=== PATIENT | male | born 1965 | race Two or more races ===

== ENCOUNTER 2023-07-14 20:46 | Emergency (ER) | payer MEDICAID ==
[~2023-07-14] VITALS: Ht 165.1 cm; Wt 72.7 kg
[2023-07-14] MEDS ORDERED: IBUPROFEN 600 MG TABLET PO ONE (21:00)
[2023-07-14 21:36] VITALS: BP 142/74; PULSE 98; RESP 15; TEMP 98.3
== END 2023-07-14 22:10 | disposition home or self-care (01) ==
LOC: EMS 20:47
DX: S42.001A Fracture of unspecified part of right clavicle, initial encounter for closed fracture (principal); F10.90 Alcohol use, unspecified, uncomplicated; Y90.9 Presence of alcohol in blood, level not specified; Y08.89XA Assault by other specified means, initial encounter; Y93.89 Activity, other specified; Y92.89 Other specified places as the place of occurrence of the external cause; Y99.8 Other external cause status
CPT/HCPCS: 71045; 99283

== ENCOUNTER 2024-06-12 02:07 | Emergency (ER) | payer OTHER ==
[~2024-06-12] VITALS: Ht 175.3 cm; Wt 75.0 kg
[~2024-06-12 02:07] MED LIST: FURO40TA6 PO; LACT10SO10 PO; PANT-31 PO; PRED-549 PO; PROP10TA72 PO; SITA50 PO; SPIR50TA PO
[2024-06-12 02:24] VITALS: TEMP 98.8
[2024-06-12 03:15] LABS: HEMATOCRIT 33.9 % (41-53); HEMOGLOBIN 10.8 g/dL (13.5-17.5); MEAN CORPUSCULAR HEMOGLOBIN 25.3 pg (26.0-34.0); MEAN CORPUSCULAR VOLUME 79 fL (80-100); PLATELET COUNT (AUTO) 50 K/uL (150-450); RED BLOOD CELL COUNT(AUTO) 4.29 MIL/uL (4.50-5.90); RED CELL DISTRIBUTION WIDTH 20.4 % (11.5-14.5)
[2024-06-12 03:23] LABS: BAND NEUTROPHILS % (MANUAL) 0 % (0-5)
[2024-06-12 03:28] LABS: INR 1.2 (0.9-1.1); PROTHROMBIN TIME 12.8 SEC (9.4-11.6)
[2024-06-12 03:29] LABS: ANION GAP 12 mmol/L (8-16); CALCIUM, TOTAL 8.4 mg/dL (8.8-10.5); CARBON DIOXIDE 26 mmol/L (22-29); CHLORIDE 103 mmol/L (98-107); CREATININE 1.11 mg/dL (0.60-1.30); GLOMERULAR FILTR. RATE CALC > 60 mL/min (>60); GLUCOSE,RANDOM 254 mg/dL (70-110); POTASSIUM 3.3 mmol/L (3.5-5.1); SODIUM SERUM 141 mmol/L (136-145); UREA NITROGEN, BLOOD 7 mg/dL (7-18)
[2024-06-12 03:34] LABS: TROPONIN I-HIGH SENSITIVITY 11 ng/L (<76)
[2024-06-12 03:35] LABS: ALANINE AMINOTRANSFERASE 23 U/L (12-78); ALBUMIN 2.7 g/dL (3.4-5.0); ALKALINE PHOSPHATASE 129 U/L (46-116); ASPARTATE AMINOTRANSFERASE 40 U/L (15-37); BILIRUBIN,TOTAL 0.8 mg/dL (0.1-1.0); LIPASE 44 U/L (16-77); TOTAL PROTEIN, SERUM 7.6 g/dL (6.4-8.2)
[2024-06-12 03:41] LABS: EOSINOPHILS % (MANUAL) 27 % (1-6); LYMPHOCYTES % (MANUAL) 32 % (22-44); MONOCYTES % (MANUAL) 2 % (2-9); SEGMENTED NEUTROPHILS % 39 % (40-70); TOTAL CELLS COUNTED 100
[2024-06-12 03:42] LABS: WHITE BLOOD COUNT (AUTO) 3.3 K/uL (4.5-11.0)
[2024-06-12 03:47] LABS: ALCOHOL, BLOOD (SERUM) 355 mg/dL (0-10)
[2024-06-12] MEDS: MAGNESIUM SULFATE 2 GM, MVI, ADULT NO.1 WITH VIT K 10 ML, THIAMINE 100 MG, FOLIC ACID 1... IV ONE (04:35)
[2024-06-12] MEDS: FAMOTIDINE 20 MG/2 ML VIAL IVP ONE (04:35)
[2024-06-12 07:40] LABS: APPEARANCE,URINE CLEAR (CLEAR); BILIRUBIN,URINE NEGATIVE (NEGATIVE); COLOR,URINE LIGHT YELLOW (YELLOW); GLUCOSE, URINE (UA) >=1000 mg/dL (NEGATIVE); KETONES,URINE NEGATIVE (NEGATIVE); LEUKOCYTE ESTERASE ,URINE NEGATIVE (NEGATIVE); NITRATE,URINE NEGATIVE (NEGATIVE); OCCULT BLOOD,URINE NEGATIVE (NEGATIVE); PH,URINE 6.5 (5.0-8.0); PROTEIN,URINE TRACE mg/dL (NEGATIVE); SPECIFIC GRAVITIY, URINE 1.022 (1.003-1.030); UROBILINOGEN,URINE <=1.0 mg/dL (<=1.0)
[2024-06-12 07:42] LABS: BACTERIA,URINE None Seen /HPF (None Seen); RBC,URINE None Seen /HPF (0-2); WBC,URINE None Seen /HPF (0-5)
[2024-06-12 12:30] VITALS: BP 129/83; PULSE 96; RESP 18; O2SAT 96
== END 2024-06-12 15:40 | disposition home or self-care (01) ==
LOC: EMS 02:08
DX: D68.9 Coagulation defect, unspecified (principal); F10.229 Alcohol dependence with intoxication, unspecified; F41.9 Anxiety disorder, unspecified; E11.9 Type 2 diabetes mellitus without complications; I10 Essential (primary) hypertension; K40.90 Unilateral inguinal hernia, without obstruction or gangrene, not specified as recurrent; Y90.8 Blood alcohol level of 240 mg/100 ml or more
CPT/HCPCS: 99285; 74176; 96365; 96375; 80048; 80076; 82140; 83690; 83735; 84484; 85025; 85610; 85730; 36415; 74022; 93005; 81001; G0480; J3490 ×3; J3411; J3475; J7030

== ENCOUNTER 2024-12-03 00:54 | Emergency (ER) | payer OTHER ==
[~2024-12-03] VITALS: Ht 172.7 cm; Wt 88.0 kg
[~2024-12-03 00:54] MED LIST changes: +ACET-2247 PO; +AMLO10TA55 PO; +AMOX-457 PO; +CARV6.2534 PO; +FOLI-130 PO; -FURO40TA6 PO; -LACT10SO10 PO; +LEVE250T81 PO; +METF-446 PO; +MULT-1203 PO; -PRED-549 PO; -PROP10TA72 PO; +SITA100 PO; -SITA50 PO; -SPIR50TA PO; +THIA100T80 PO
[2024-12-03 01:02] VITALS: TEMP 98
[2024-12-03 01:35] LABS: BASOPHILS % (AUTO) 0.4 % (0.0-2.0); EOSINOPHILS % (AUTO) 10.7 % (1.0-6.0); HEMATOCRIT 33.7 % (41-53); LYMPHOCYTES # (AUTO) 0.7 K/uL (1.0-4.8); LYMPHOCYTES % (AUTO) 18.8 % (22.0-44.0); MEAN CORPUSCULAR HGB CONC 32.5 G/dL (31.0-37.0); MEAN CORPUSCULAR VOLUME 80 fL (80-100); MONOCYTES # (AUTO) 0.3 K/uL (0.1-1.0); MONOCYTES % (AUTO) 7.2 % (2.0-9.0); NEUTROPHILS # (AUTO) 2.4 K/uL (1.8-7.7); NEUTROPHILS % (AUTO) 62.9 % (40.0-70.0); RED BLOOD CELL COUNT(AUTO) 4.21 MIL/uL (4.50-5.90); RED CELL DISTRIBUTION WIDTH 19.1 % (11.5-14.5); WHITE BLOOD COUNT (AUTO) 3.8 K/uL (4.5-11.0)
[2024-12-03 01:45] LABS: PLATELET COUNT (AUTO) 45 K/uL (150-450)
[2024-12-03 01:53] LABS: ANION GAP 10 mmol/L (8-16); CALCIUM, TOTAL 8.2 mg/dL (8.8-10.5); CARBON DIOXIDE 26 mmol/L (22-29); CHLORIDE 103 mmol/L (98-107); CREATININE 0.56 mg/dL (0.60-1.30); GLOMERULAR FILTR. RATE CALC > 60 mL/min (>60); GLUCOSE,RANDOM 255 mg/dL (70-110); LIPASE 32 U/L (16-77); SODIUM SERUM 139 mmol/L (136-145); TROPONIN I-HIGH SENSITIVITY 12 ng/L (<76); UREA NITROGEN, BLOOD 2 mg/dL (7-18)
[2024-12-03 01:56] LABS: ALCOHOL, BLOOD (SERUM) 348 mg/dL (0-10)
[2024-12-03 02:01] LABS: POTASSIUM 2.9 mmol/L (3.5-5.1)
[2024-12-03] MEDS: POTASSIUM CHLORIDE 20 MEQ ER TABLET PO ONE (02:24)
[2024-12-03 04:32] VITALS: BP 148/80; PULSE 98; RESP 17; O2SAT 98
== END 2024-12-03 05:20 | disposition home or self-care (01) ==
LOC: EMS 00:56
DX: S00.83XA Contusion of other part of head, initial encounter (principal); F10.129 Alcohol abuse with intoxication, unspecified; K70.30 Alcoholic cirrhosis of liver without ascites; E11.65 Type 2 diabetes mellitus with hyperglycemia; I10 Essential (primary) hypertension; E87.6 Hypokalemia; Z59.00 Homelessness unspecified; Z79.84 Long term (current) use of oral hypoglycemic drugs; Z85.028 Personal history of other malignant neoplasm of stomach; Z87.19 Personal history of other diseases of the digestive system; Z79.899 Other long term (current) drug therapy; W50.0XXA Accidental hit or strike by another person, initial encounter; Y93.89 Activity, other specified; Y92.89 Other specified places as the place of occurrence of the external cause; Y99.8 Other external cause status; Y90.9 Presence of alcohol in blood, level not specified
CPT/HCPCS: 99284; 80048; 83690; 84484; 85025; 36415; 93005; G0480

== ENCOUNTER 2025-02-07 03:36 | Inpatient (IN) | payer OTHER ==
[2025-02-07] VITALS (8 sets, daily range): BP systolic 98–126; BP diastolic 59–85; PULSE 88–101; RESP 17–19; TEMP 98–98.8; O2SAT 95–98
[~2025-02-07] VITALS: Ht 165.1 cm; Wt 85.0 kg
[~2025-02-07 03:36] MED LIST changes: -ACET-2247 PO; +ACET-66 PO; -AMOX-457 PO; +CHLO25CA6 PO; +CHOL200059 PO; +HYDR-4808 PO
[2025-02-07] MEDS: TraMADol HCL 50 MG TABLET PO ONE (04:44)
[2025-02-07] MEDS: SODIUM CHLORIDE 0.9% 1,000 ML IV ONE (04:45)
[2025-02-07 04:50] LABS: ANION GAP 11 mmol/L (8-16); CARBON DIOXIDE 21 mmol/L (22-29); CHLORIDE 106 mmol/L (98-107); CREATININE 0.74 mg/dL (0.60-1.30); GLOMERULAR FILTR. RATE CALC > 60 mL/min (>60); GLUCOSE,RANDOM 269 mg/dL (70-110); POTASSIUM 3.4 mmol/L (3.5-5.1); SODIUM SERUM 138 mmol/L (136-145); UREA NITROGEN, BLOOD 7 mg/dL (7-18)
[2025-02-07 05:02] LABS: HEMATOCRIT 37.5 % (41-53); HEMOGLOBIN 12.1 g/dL (13.5-17.5); MEAN CORPUSCULAR HEMOGLOBIN 26.1 pg (26.0-34.0); MEAN CORPUSCULAR HGB CONC 32.3 G/dL (31.0-37.0); MEAN CORPUSCULAR VOLUME 81 fL (80-100); PLATELET COUNT (AUTO) 48 K/uL (150-450); RED BLOOD CELL COUNT(AUTO) 4.63 MIL/uL (4.50-5.90); RED CELL DISTRIBUTION WIDTH 20.6 % (11.5-14.5); WHITE BLOOD COUNT (AUTO) 2.6 K/uL (4.5-11.0)
[2025-02-07 05:22] LABS: BAND NEUTROPHILS % (MANUAL) 0 % (0-5)
[2025-02-07 05:23] LABS: EOSINOPHILS % (MANUAL) 15 % (1-6); LYMPHOCYTES % (MANUAL) 31 % (22-44); MONOCYTES % (MANUAL) 8 % (2-9); SEGMENTED NEUTROPHILS % 46 % (40-70); TOTAL CELLS COUNTED 100
[2025-02-07] MEDS: ChlordiazePOXIDE HCL 25 MG CAPSULE PO ONE (06:18)
[2025-02-07] MEDS ORDERED: HydrOXYzine PAMOATE 25 MG CAPSULE PO PRN (18:00)
[2025-02-07] MEDS ORDERED: LORazepam 2 MG/ML VIAL IVP PRN (18:15)
[2025-02-07] MEDS: MetFORMIN HCL 500 MG TABLET PO SCH (18:26)
[2025-02-07] MEDS ORDERED: ChlordiazePOXIDE HCL 10 MG CAPSULE PO PRN (18:30)
[2025-02-07] MEDS: LevETIRAcetam 250 MG TABLET PO SCH (20:44)
[2025-02-07] MEDS: ChlordiazePOXIDE HCL 10 MG CAPSULE PO SCH (20:44)
[2025-02-07] MEDS ORDERED: carvediloL 6.25 MG TABLET PO SCH (21:00)
[2025-02-08 00:51] VITALS: BP 128/82; PULSE 89; RESP 19; TEMP 98.2; O2SAT 98
[2025-02-08 04:59] VITALS: BP 150/84; PULSE 80; RESP 18; TEMP 98.2; O2SAT 99
[2025-02-08 07:57] VITALS: BP 123/85; PULSE 88; RESP 19; TEMP 98.8; O2SAT 98
[2025-02-08] MEDS: MULTIVITAMINS, THERAPEUTIC TABLET PO SCH (08:24)
[2025-02-08] MEDS: PANTOPRAZOLE SODIUM 40 MG DR TABLET PO SCH (08:24)
[2025-02-08] MEDS: CHOLECALCIFEROL (VIT D3) 1,000 UNITS [25 MCG] TABLET PO SCH (08:24)
[2025-02-08] MEDS: THIAMINE 100 MG TABLET PO SCH (08:24)
[2025-02-08] MEDS: SitaGLIPtin PHOSPHATE 100 MG TABLET PO SCH (08:24)
[2025-02-08] MEDS: FOLIC ACID 1 MG TABLET PO SCH (08:24)
[2025-02-08] MEDS ORDERED: AmLODIPine BESYLATE 10 MG TABLET PO SCH (09:00)
[2025-02-08 11:35] VITALS: BP 126/84; PULSE 79; RESP 19; TEMP 98.1; O2SAT 99
[2025-02-08 12:01] LABS: GLUCOMETER DEV NAME(LOC) 5N.2C; GLUCOSE,POINT OF CARE 222 MG/DL (70-110)
[2025-02-08 15:21] VITALS: BP 112/77; PULSE 85; RESP 18; TEMP 98.1; O2SAT 98
[2025-02-08 18:39] VITALS: BP 118/72; PULSE 89; RESP 17; TEMP 98.5; O2SAT 97
== END 2025-02-08 19:10 | disposition home or self-care (01) | DRG 53 ==
LOC: EMS 03:38 → EDH 06:42 → 5S 10:15
PROVIDERS: ADMIT Hospitalist; ATTEND Hospitalist
DX: G40.909 Epilepsy, unspecified, not intractable, without status epilepticus (principal); K74.60 Unspecified cirrhosis of liver; E11.9 Type 2 diabetes mellitus without complications; F41.9 Anxiety disorder, unspecified; D64.9 Anemia, unspecified; I10 Essential (primary) hypertension; Z59.02 Unsheltered homelessness; Z85.028 Personal history of other malignant neoplasm of stomach; Z91.199 Patient's noncompliance with other medical treatment and regimen due to unspecified reason
CPT/HCPCS: 70450; 72125; 80048; 82962; 85025; 96360; G0378; G0480; J7030; 36415-L1; 36415-TC

== ENCOUNTER 2025-02-19 22:10 | Inpatient (IN) | payer OTHER ==
[~2025-02-19] VITALS: Ht 165.1 cm; Wt 83.6 kg
[2025-02-19] MEDS: MAG HYDROX/ALUMINUM HYD/SIMETH 30 ML SUSPENSION UDCUP PO ONE (23:01)
[2025-02-19] MEDS: SODIUM CHLORIDE 0.9% 1,000 ML IV ONE (23:01)
[2025-02-19] MEDS: MORPHINE SULFATE 2 MG/ML SYRINGE IVP ONE (23:02)
[2025-02-19] MEDS ORDERED: SODIUM CHLORIDE 0.9% 100 ML ONE (23:04)
[2025-02-19] MEDS ORDERED: IOHEXOL 350 MG/ML 100 ML VIAL ONE (23:04)
[2025-02-19 23:05] LABS: HEMATOCRIT 33.5 % (41-53); RED CELL DISTRIBUTION WIDTH 18.9 % (11.5-14.5); WHITE BLOOD COUNT (AUTO) 3.2 K/uL (4.5-11.0)
[2025-02-19 23:09] LABS: HEMOGLOBIN 11.1 g/dL (13.5-17.5); MEAN CORPUSCULAR HEMOGLOBIN 26.4 pg (26.0-34.0); MEAN CORPUSCULAR VOLUME 80 fL (80-100); PLATELET COUNT (AUTO) 62 K/uL (150-450); RED BLOOD CELL COUNT(AUTO) 4.19 MIL/uL (4.50-5.90)
[2025-02-19] MEDS: LevETIRAcetam 1,000 MG in DEXTROSE 5%-WATER 100 ML IV ONE (23:09)
[2025-02-19 23:14] LABS: ANION GAP 7 mmol/L (8-16); CALCIUM, TOTAL 8.5 mg/dL (8.8-10.5); CARBON DIOXIDE 29 mmol/L (22-29); CHLORIDE 104 mmol/L (98-107); CREATININE 0.79 mg/dL (0.60-1.30); GLOMERULAR FILTR. RATE CALC > 60 mL/min (>60); GLUCOSE,RANDOM 296 mg/dL (70-110); SODIUM SERUM 140 mmol/L (136-145); UREA NITROGEN, BLOOD 5 mg/dL (7-18)
[2025-02-19] MEDS ORDERED: DEXTROSE 50%-WATER 25 GM/50 ML SYRINGE IVP PRN ×2 (23:15→23:45)
[2025-02-19] MEDS ORDERED: INSULIN LISPRO 100 UNITS/ML SQ PRN (23:15)
[2025-02-19] MEDS ORDERED: LORazepam 2 MG/ML VIAL IVP PRN (23:15)
[2025-02-19] MEDS ORDERED: ONDANSETRON HCL 4 MG/2 ML VIAL IVP PRN (23:15)
[2025-02-19 23:21] LABS: ALBUMIN 2.6 g/dL (3.4-5.0); BILIRUBIN,DIRECT 0.4 mg/dL (0.00-0.20); BILIRUBIN,TOTAL 0.9 mg/dL (0.1-1.0); MAGNESIUM 1.8 mg/dL (1.80-2.40); PROTHROMBIN TIME 13.1 SEC (9.4-11.6); TOTAL PROTEIN, SERUM 7.1 g/dL (6.4-8.2)
[2025-02-19 23:25] LABS: TROPONIN I-HIGH SENSITIVITY 8 ng/L (<76)
[2025-02-19 23:26] LABS: POTASSIUM 2.9 mmol/L (3.5-5.1)
[2025-02-19 23:28] LABS: BAND NEUTROPHILS % (MANUAL) 2 % (0-5); EOSINOPHILS % (MANUAL) 12 % (1-6); LYMPHOCYTES % (MANUAL) 37 % (22-44); MONOCYTES % (MANUAL) 6 % (2-9); SEGMENTED NEUTROPHILS % 43 % (40-70); TOTAL CELLS COUNTED 100
[2025-02-19 23:30] LABS: RBC MORPHOLOGY COMMENT ABNORMAL R
[2025-02-19] MEDS ORDERED: MAGNESIUM SULFATE 2 GM/WATER 50 ML IV PRN (23:30)
[2025-02-19] MEDS ORDERED: MAGNESIUM OXIDE 400 MG TABLET PO PRN (23:30)
[2025-02-19] MEDS ORDERED: MAGNESIUM SULFATE 4 GM/WATER 100 ML IV PRN (23:30)
[2025-02-19] MEDS: FAMOTIDINE 20 MG/2 ML VIAL IVP ONE (23:32)
[2025-02-19] MEDS: LORazepam 2 MG/ML VIAL IVP ONE (23:34)
[2025-02-19] MEDS: POTASSIUM CHLORIDE 20 MEQ ER TABLET PO ONE (23:39)
[2025-02-20] MEDS: HEPARIN SODIUM,PORCINE 5,000 UNITS/ML VIAL SQ SCH
[2025-02-20] MEDS: ChlordiazePOXIDE HCL 25 MG CAPSULE PO SCH (00:27)
[2025-02-20] MEDS: 1: MAGNESIUM SULFATE 2 GM, MVI, ADULT NO.1 WITH VIT K 10 ML, THIAMINE 100 MG, FOLIC ACID IV SCH (00:35)
[2025-02-20 00:58] LABS: TROPONIN I-HIGH SENSITIVITY 9 ng/L (<76)
[2025-02-20 02:04] LABS: APPEARANCE,URINE CLEAR (CLEAR); BILIRUBIN,URINE NEGATIVE (NEGATIVE); COLOR,URINE LIGHT YELLOW (YELLOW); GLUCOSE, URINE (UA) >=1000 mg/dL (NEGATIVE); KETONES,URINE NEGATIVE (NEGATIVE); LEUKOCYTE ESTERASE ,URINE NEGATIVE (NEGATIVE); NITRATE,URINE NEGATIVE (NEGATIVE); OCCULT BLOOD,URINE NEGATIVE (NEGATIVE); PROTEIN,URINE NEGATIVE (NEGATIVE); SPECIFIC GRAVITIY, URINE 1.028 (1.003-1.030); UROBILINOGEN,URINE <=1.0 mg/dL (<=1.0)
[2025-02-20 02:07] LABS: BACTERIA,URINE None Seen /HPF (None Seen); RBC,URINE None Seen /HPF (0-2); SQUAMOUS EPITHELIAL CELL,UR Rare /LPF (None Seen); WBC,URINE None Seen /HPF (0-5)
[2025-02-20 02:11] LABS: ALCOHOL, URINE DRUG SCREEN POSITIVE (NEGATIVE); AMPHET/METH SCREEN,URINE NEGATIVE (NEGATIVE); BARBITURATE SCREEN, URINE NEGATIVE (NEGATIVE); BENZODIAZEPINES SCREEN,URINE POSITIVE (NEGATIVE); CANNABINOID SCREEN,URINE NEGATIVE (NEGATIVE); COCAINE SCREEN,URINE NEGATIVE (NEGATIVE); METHADONE SCREEN, URINE NEGATIVE (NEGATIVE); OPIATE SCREEN,URINE POSITIVE (NEGATIVE); PHENCYCLIDINE SCREEN,URINE NEGATIVE (NEGATIVE)
[2025-02-20] MEDS: POTASSIUM CHL 10 MEQ/WATER 50 ML IV PRN (03:17)
[2025-02-20] MEDS: INSULIN LISPRO 100 UNITS/ML SQ PRN (03:34)
[2025-02-20 05:13] LABS: HEMATOCRIT 29.5 % (41-53); HEMOGLOBIN 9.7 g/dL (13.5-17.5); MEAN CORPUSCULAR HEMOGLOBIN 26.4 pg (26.0-34.0); MEAN CORPUSCULAR HGB CONC 32.9 G/dL (31.0-37.0); MEAN CORPUSCULAR VOLUME 80 fL (80-100); PLATELET COUNT (AUTO) 45 K/uL (150-450); RED BLOOD CELL COUNT(AUTO) 3.69 MIL/uL (4.50-5.90); RED CELL DISTRIBUTION WIDTH 18.4 % (11.5-14.5); WHITE BLOOD COUNT (AUTO) 2.2 K/uL (4.5-11.0)
[2025-02-20 05:32] LABS: ANION GAP 7 mmol/L (8-16); CALCIUM, TOTAL 7.8 mg/dL (8.8-10.5); CARBON DIOXIDE 28 mmol/L (22-29); CHLORIDE 110 mmol/L (98-107); CREATININE 0.55 mg/dL (0.60-1.30); GLOMERULAR FILTR. RATE CALC > 60 mL/min (>60); GLUCOSE,RANDOM 190 mg/dL (70-110); POTASSIUM 3.3 mmol/L (3.5-5.1); SODIUM SERUM 145 mmol/L (136-145); TROPONIN I-HIGH SENSITIVITY 9 ng/L (<76); UREA NITROGEN, BLOOD 4 mg/dL (7-18)
[2025-02-20 08:10] LABS: GLUCOMETER DEV NAME(LOC) ERT.7; GLUCOSE,POINT OF CARE 137 MG/DL (70-110)
[2025-02-20] MEDS: THIAMINE 100 MG TABLET PO SCH (08:24)
[2025-02-20] MEDS: DOCUSATE SODIUM 100 MG CAPSULE PO SCH (08:24)
[2025-02-20] MEDS: PANTOPRAZOLE SODIUM 40 MG DR TABLET PO SCH (08:24)
[2025-02-20] MEDS: FOLIC ACID 1 MG TABLET PO SCH (08:24)
[2025-02-20] MEDS: MULTIVITAMINS, THERAPEUTIC TABLET PO SCH (08:24)
[2025-02-20 10:55] LABS: BAND NEUTROPHILS % (MANUAL) 1 % (0-5); EOSINOPHILS % (MANUAL) 1 % (1-6); LYMPHOCYTES % (MANUAL) 43 % (22-44); RBC MORPHOLOGY COMMENT NORMAL RBC MORPH; SEGMENTED NEUTROPHILS % 55 % (40-70); TOTAL CELLS COUNTED 100
[2025-02-20 11:25] LABS: TROPONIN I-HIGH SENSITIVITY 8 ng/L (<76)
[2025-02-20] MEDS: TraMADol HCL 50 MG TABLET PO PRN (12:34)
[2025-02-20 18:48] VITALS: BP 131/85; PULSE 88; RESP 18; TEMP 98.8; O2SAT 97
[2025-02-20 21:16] VITALS: BP 138/85; PULSE 81; RESP 18; TEMP 99.3; O2SAT 99
[2025-02-20] MEDS: LevETIRAcetam 250 MG TABLET PO SCH (21:19)
[2025-02-20] MEDS ORDERED: SODIUM CHLORIDE 0.9% 250 ML IV ONE (22:08)
[2025-02-20] MEDS: INSULIN GLARGINE,HUM.REC.ANLOG 100 UNITS/ML SQ SCH (22:33)
[2025-02-20 23:57] VITALS: BP 129/74; PULSE 84; RESP 20; TEMP 98.8; O2SAT 100
[2025-02-21 00:31] LABS: GLUCOMETER DEV NAME(LOC) 5N.2C; GLUCOSE,POINT OF CARE 178 MG/DL (70-110)
[2025-02-21 04:06] VITALS: BP 128/72; PULSE 76; RESP 19; TEMP 98.6; O2SAT 98
[2025-02-21] MEDS: MORPHINE SULFATE 2 MG/ML SYRINGE IVP ONE (06:26)
[2025-02-21 06:50] LABS: HEMATOCRIT 31.5 % (41-53); HEMOGLOBIN 10.4 g/dL (13.5-17.5); MEAN CORPUSCULAR HEMOGLOBIN 26.8 pg (26.0-34.0); MEAN CORPUSCULAR VOLUME 81 fL (80-100); PLATELET COUNT (AUTO) 42 K/uL (150-450); RED BLOOD CELL COUNT(AUTO) 3.89 MIL/uL (4.50-5.90); RED CELL DISTRIBUTION WIDTH 18.2 % (11.5-14.5); WHITE BLOOD COUNT (AUTO) 1.8 K/uL (4.5-11.0)
[2025-02-21 07:09] LABS: ANION GAP 6 mmol/L (8-16); CARBON DIOXIDE 27 mmol/L (22-29); CHLORIDE 107 mmol/L (98-107); CREATININE 0.51 mg/dL (0.60-1.30); GLOMERULAR FILTR. RATE CALC > 60 mL/min (>60); GLUCOSE,RANDOM 102 mg/dL (70-110); SODIUM SERUM 140 mmol/L (136-145); UREA NITROGEN, BLOOD 3 mg/dL (7-18)
[2025-02-21 07:46] LABS: GLUCOMETER DEV NAME(LOC) 5S.2D; GLUCOSE,POINT OF CARE 115 MG/DL (70-110)
[2025-02-21 07:56] LABS: BAND NEUTROPHILS % (MANUAL) 1 % (0-5); EOSINOPHILS % (MANUAL) 2 % (1-6); LYMPHOCYTES % (MANUAL) 35 % (22-44); MONOCYTES % (MANUAL) 2 % (2-9); SEGMENTED NEUTROPHILS % 60 % (40-70); TOTAL CELLS COUNTED 100
[2025-02-21 07:57] LABS: RBC MORPHOLOGY COMMENT ABNORMAL R
[2025-02-21] MEDS: POTASSIUM CHLORIDE 20 MEQ ER TABLET PO PRN (10:04)
[2025-02-21 12:00] VITALS: BP 123/86; PULSE 82; RESP 18; TEMP 98.4; O2SAT 97
[2025-02-21 12:00] LABS: GLUCOMETER DEV NAME(LOC) 5N.2C; GLUCOSE,POINT OF CARE 316 MG/DL (70-110)
[2025-02-21 16:12] VITALS: BP 119/77; PULSE 87; RESP 19; TEMP 97.8; O2SAT 97
[2025-02-21 17:10] LABS: GLUCOMETER DEV NAME(LOC) 5S.1D; GLUCOSE,POINT OF CARE 219 MG/DL (70-110)
[2025-02-21 19:53] VITALS: BP 117/67; PULSE 81; RESP 20; TEMP 98.4; O2SAT 98
[2025-02-21] MEDS: LORazepam 2 MG/ML VIAL IVP PRN (20:14)
[2025-02-21 22:08] VITALS: BP 125/78; PULSE 86; RESP 19; O2SAT 99
[2025-02-22] VITALS: BP 131/82; PULSE 84; RESP 19; TEMP 98.1; O2SAT 98
[2025-02-22 04:54] VITALS: BP 135/88; PULSE 79; RESP 18; TEMP 97.9; O2SAT 99
[2025-02-22 06:36] LABS: GLUCOMETER DEV NAME(LOC) 5N.2C; GLUCOSE,POINT OF CARE 221 MG/DL (70-110)
[2025-02-22 07:45] LABS: ANION GAP 4 mmol/L (8-16); CALCIUM, TOTAL 8.4 mg/dL (8.8-10.5); CARBON DIOXIDE 25 mmol/L (22-29); CHLORIDE 107 mmol/L (98-107); CREATININE 0.58 mg/dL (0.60-1.30); GLOMERULAR FILTR. RATE CALC > 60 mL/min (>60); GLUCOSE,RANDOM 166 mg/dL (70-110); POTASSIUM 3.6 mmol/L (3.5-5.1); SODIUM SERUM 136 mmol/L (136-145); UREA NITROGEN, BLOOD 6 mg/dL (7-18)
[2025-02-22 07:49] LABS: HEMATOCRIT 34.1 % (41-53); HEMOGLOBIN 11.1 g/dL (13.5-17.5); MEAN CORPUSCULAR HEMOGLOBIN 26.6 pg (26.0-34.0); MEAN CORPUSCULAR HGB CONC 32.6 G/dL (31.0-37.0); MEAN CORPUSCULAR VOLUME 82 fL (80-100); PLATELET COUNT (AUTO) 43 K/uL (150-450); RED BLOOD CELL COUNT(AUTO) 4.18 MIL/uL (4.50-5.90); RED CELL DISTRIBUTION WIDTH 18.3 % (11.5-14.5)
[2025-02-22 07:58] LABS: BAND NEUTROPHILS % (MANUAL) 1 % (0-5); EOSINOPHILS % (MANUAL) 4 % (1-6); LYMPHOCYTES % (MANUAL) 33 % (22-44); MONOCYTES % (MANUAL) 5 % (2-9); SEGMENTED NEUTROPHILS % 57 % (40-70); TOTAL CELLS COUNTED 100
[2025-02-22 08:20] LABS: GLUCOMETER DEV NAME(LOC) 5S.2D; GLUCOSE,POINT OF CARE 178 MG/DL (70-110)
[2025-02-22 09:00] VITALS: BP 133/77; PULSE 71; RESP 18; TEMP 98.1; O2SAT 99
[2025-02-22 12:20] VITALS: BP 131/82; PULSE 76; RESP 18; TEMP 97.3; O2SAT 96
[2025-02-22 14:01] LABS: GLUCOMETER DEV NAME(LOC) 5S.2D; GLUCOSE,POINT OF CARE 226 MG/DL (70-110)
[2025-02-22 16:00] VITALS: BP 132/80; PULSE 83; RESP 18; TEMP 99.1; O2SAT 99
[2025-02-22 19:48] VITALS: BP 119/80; PULSE 77; RESP 18; TEMP 97.9; O2SAT 97
[2025-02-22] MEDS: LORazepam 2 MG/ML VIAL IVP PRN (20:35)
[2025-02-22 21:25] LABS: GLUCOMETER DEV NAME(LOC) 5S.1D; GLUCOSE,POINT OF CARE 210 MG/DL (70-110)
[2025-02-23] VITALS: BP 122/81; PULSE 77; RESP 18; TEMP 98.1; O2SAT 98
[2025-02-23 02:26] LABS: GLUCOMETER DEV NAME(LOC) 5S.2D; GLUCOSE,POINT OF CARE 196 MG/DL (70-110)
[2025-02-23 04:30] VITALS: BP 131/71; PULSE 78; RESP 18; TEMP 97.6; O2SAT 98
[2025-02-23 04:41] VITALS: BP 141/83; PULSE 77; RESP 20; TEMP 97.9; O2SAT 95
[2025-02-23 07:19] LABS: HEMOGLOBIN 10.8 g/dL (13.5-17.5); MEAN CORPUSCULAR HEMOGLOBIN 26.3 pg (26.0-34.0); MEAN CORPUSCULAR HGB CONC 32.8 G/dL (31.0-37.0); MEAN CORPUSCULAR VOLUME 80 fL (80-100); PLATELET COUNT (AUTO) 45 K/uL (150-450); RED BLOOD CELL COUNT(AUTO) 4.12 MIL/uL (4.50-5.90); RED CELL DISTRIBUTION WIDTH 18.7 % (11.5-14.5)
[2025-02-23 07:26] LABS: GLUCOMETER DEV NAME(LOC) 6N.1B; GLUCOSE,POINT OF CARE 169 MG/DL (70-110)
[2025-02-23 07:29] LABS: ANION GAP 6 mmol/L (8-16); CALCIUM, TOTAL 8.8 mg/dL (8.8-10.5); CARBON DIOXIDE 25 mmol/L (22-29); CHLORIDE 107 mmol/L (98-107); CREATININE 0.53 mg/dL (0.60-1.30); GLOMERULAR FILTR. RATE CALC > 60 mL/min (>60); GLUCOSE,RANDOM 151 mg/dL (70-110); POTASSIUM 3.4 mmol/L (3.5-5.1); SODIUM SERUM 138 mmol/L (136-145); UREA NITROGEN, BLOOD 5 mg/dL (7-18)
[2025-02-23 08:09] VITALS: BP 142/90; PULSE 74; RESP 18; TEMP 98.2; O2SAT 97
[2025-02-23 08:23] LABS: BAND NEUTROPHILS % (MANUAL) 2 % (0-5); EOSINOPHILS % (MANUAL) 1 % (1-6); LYMPHOCYTES % (MANUAL) 33 % (22-44); MONOCYTES % (MANUAL) 2 % (2-9); SEGMENTED NEUTROPHILS % 62 % (40-70); TOTAL CELLS COUNTED 100
[2025-02-23 08:24] LABS: RBC MORPHOLOGY COMMENT NORMAL RBC MORPH
[2025-02-23 16:35] LABS: GLUCOMETER DEV NAME(LOC) 4E.2; GLUCOSE,POINT OF CARE 212 MG/DL (70-110)
[2025-02-23 16:47] VITALS: BP 120/64; PULSE 92; RESP 18; TEMP 98.4; O2SAT 99
[2025-02-23 20:29] VITALS: BP 127/84; PULSE 74; RESP 18; TEMP 97.9; O2SAT 95
[2025-02-23 23:41] LABS: GLUCOMETER DEV NAME(LOC) 4E.2; GLUCOSE,POINT OF CARE 131 MG/DL (70-110)
[2025-02-24 05:51] VITALS: BP 127/78; PULSE 78; RESP 18; TEMP 98.2; O2SAT 97
[2025-02-24 06:15] LABS: GLUCOMETER DEV NAME(LOC) 6N.1B; GLUCOSE,POINT OF CARE 240 MG/DL (70-110)
[2025-02-24 07:23] LABS: HEMATOCRIT 33.3 % (41-53); MEAN CORPUSCULAR HEMOGLOBIN 26.4 pg (26.0-34.0); MEAN CORPUSCULAR VOLUME 80 fL (80-100); PLATELET COUNT (AUTO) 47 K/uL (150-450); RED BLOOD CELL COUNT(AUTO) 4.15 MIL/uL (4.50-5.90); RED CELL DISTRIBUTION WIDTH 18.1 % (11.5-14.5); WHITE BLOOD COUNT (AUTO) 1.9 K/uL (4.5-11.0)
[2025-02-24 07:38] LABS: ALANINE AMINOTRANSFERASE 19 U/L (12-78); ALBUMIN 2.3 g/dL (3.4-5.0); ALKALINE PHOSPHATASE 110 U/L (46-116); ANION GAP 5 mmol/L (8-16); ASPARTATE AMINOTRANSFERASE 27 U/L (15-37); CALCIUM, TOTAL 8.4 mg/dL (8.8-10.5); CARBON DIOXIDE 25 mmol/L (22-29); CHLORIDE 106 mmol/L (98-107); CREATININE 0.57 mg/dL (0.60-1.30); GLOMERULAR FILTR. RATE CALC > 60 mL/min (>60); GLUCOSE,RANDOM 182 mg/dL (70-110); POTASSIUM 3.4 mmol/L (3.5-5.1); SODIUM SERUM 136 mmol/L (136-145); TOTAL PROTEIN, SERUM 6.5 g/dL (6.4-8.2); UREA NITROGEN, BLOOD 8 mg/dL (7-18)
[2025-02-24 08:18] LABS: BAND NEUTROPHILS % (MANUAL) 1 % (0-5); BASOPHILS % (MANUAL) 2 % (0-2); EOSINOPHILS % (MANUAL) 10 % (1-6); LYMPHOCYTES % (MANUAL) 35 % (22-44); MONOCYTES % (MANUAL) 7 % (2-9); SEGMENTED NEUTROPHILS % 45 % (40-70); TOTAL CELLS COUNTED 100
[2025-02-24 10:35] VITALS: BP 119/85; PULSE 74; RESP 19; TEMP 97.5; O2SAT 97
[2025-02-24 11:45] LABS: GLUCOMETER DEV NAME(LOC) 4E.2; GLUCOSE,POINT OF CARE 210 MG/DL (70-110)
[2025-02-24 11:45] LABS: GLUCOMETER DEV NAME(LOC) 4E.2; GLUCOSE,POINT OF CARE 154 MG/DL (70-110)
[2025-02-24] MEDS ORDERED: ChlordiazePOXIDE HCL 10 MG CAPSULE PO SCH ×2 (16:00→21:00)
[2025-02-24 20:04] VITALS: BP 122/78; PULSE 73; RESP 18; TEMP 97.7; O2SAT 100
[2025-02-24] MEDS: ChlordiazePOXIDE HCL 25 MG CAPSULE PO SCH (20:26)
[2025-02-24] MEDS ORDERED: ChlordiazePOXIDE HCL 25 MG CAPSULE PO SCH (21:00)
[2025-02-24 23:56] LABS: GLUCOMETER DEV NAME(LOC) 6N.1B; GLUCOSE,POINT OF CARE 156 MG/DL (70-110)
[2025-02-24 23:56] LABS: GLUCOMETER DEV NAME(LOC) 6N.1B; GLUCOSE,POINT OF CARE 174 MG/DL (70-110)
[2025-02-25 05:27] VITALS: BP 136/70; PULSE 65; RESP 18; TEMP 98.1; O2SAT 95
[2025-02-25 06:16] LABS: GLUCOMETER DEV NAME(LOC) 4E.2; GLUCOSE,POINT OF CARE 172 MG/DL (70-110)
[2025-02-25 08:59] VITALS: BP 111/63; PULSE 74; RESP 18; TEMP 98; O2SAT 95
[2025-02-25 11:46] LABS: GLUCOMETER DEV NAME(LOC) 4E.2; GLUCOSE,POINT OF CARE 164 MG/DL (70-110)
[2025-02-25 14:43] LABS: ANION GAP 5 mmol/L (8-16); CALCIUM, TOTAL 8.4 mg/dL (8.8-10.5); CARBON DIOXIDE 25 mmol/L (22-29); CHLORIDE 108 mmol/L (98-107); CREATININE 0.84 mg/dL (0.60-1.30); GLOMERULAR FILTR. RATE CALC > 60 mL/min (>60); GLUCOSE,RANDOM 164 mg/dL (70-110); POTASSIUM 3.7 mmol/L (3.5-5.1); SODIUM SERUM 138 mmol/L (136-145); UREA NITROGEN, BLOOD 9 mg/dL (7-18)
[2025-02-25 16:36] VITALS: BP 119/61; PULSE 67; RESP 18; TEMP 98; O2SAT 98
[2025-02-25 20:10] VITALS: BP 122/69; PULSE 79; RESP 18; TEMP 98.4; O2SAT 96
[2025-02-25 20:35] LABS: GLUCOMETER DEV NAME(LOC) 6N.1B; GLUCOSE,POINT OF CARE 166 MG/DL (70-110)
[2025-02-25 20:45] LABS: GLUCOMETER DEV NAME(LOC) 4E.2; GLUCOSE,POINT OF CARE 197 MG/DL (70-110)
[2025-02-26 04:24] VITALS: BP 155/89; PULSE 69; RESP 19; TEMP 98.4; O2SAT 98
[2025-02-26 08:16] VITALS: BP 146/77; PULSE 72; RESP 18; TEMP 98; O2SAT 97
[2025-02-26 16:11] VITALS: BP 104/63; PULSE 70; RESP 18; TEMP 98.1; O2SAT 97
[2025-02-26] MEDS: ChlordiazePOXIDE HCL 10 MG CAPSULE PO SCH (16:34)
[2025-02-26 19:45] VITALS: BP 119/80; PULSE 76; RESP 18; TEMP 98.2; O2SAT 97
[2025-02-26 20:41] LABS: GLUCOMETER DEV NAME(LOC) 6N.1B; GLUCOSE,POINT OF CARE 159 MG/DL (70-110)
[2025-02-27 04:36] VITALS: BP 119/74; PULSE 68; RESP 18; TEMP 98.1; O2SAT 98
[2025-02-27 07:58] VITALS: BP 123/71; PULSE 77; RESP 20; TEMP 98.1; O2SAT 97
[2025-02-27 08:21] LABS: GLUCOMETER DEV NAME(LOC) 6N.1B; GLUCOSE,POINT OF CARE 116 MG/DL (70-110)
[2025-02-27 09:46] LABS: GLUCOMETER DEV NAME(LOC) 4E.2; GLUCOSE,POINT OF CARE 134 MG/DL (70-110)
[2025-02-27 09:46] LABS: GLUCOMETER DEV NAME(LOC) 4E.2; GLUCOSE,POINT OF CARE 178 MG/DL (70-110)
[2025-02-27 09:46] LABS: GLUCOMETER DEV NAME(LOC) 4E.2; GLUCOSE,POINT OF CARE 164 MG/DL (70-110)
[2025-02-27] MEDS ORDERED: LEVE250T81 PO (14:59)
[2025-02-27 16:57] VITALS: BP 148/87; PULSE 78; RESP 20; TEMP 99; O2SAT 99
[2025-02-27 17:15] LABS: GLUCOMETER DEV NAME(LOC) 6N.1B; GLUCOSE,POINT OF CARE 185 MG/DL (70-110)
[2025-02-28] MEDS ORDERED: ChlordiazePOXIDE HCL 10 MG CAPSULE PO SCH (21:00)
== END 2025-02-27 18:15 | disposition home or self-care (01) | DRG 280 ==
LOC: EMS 22:29 → EDH 23:09 → 5S 02-20 18:46 → 4E 02-23 04:50
PROVIDERS: ADMIT Internal Medicine; ATTEND Internal Medicine
DX: K70.11 Alcoholic hepatitis with ascites (principal); K70.31 Alcoholic cirrhosis of liver with ascites; K55.059 Acute (reversible) ischemia of intestine, part and extent unspecified; D61.818 Other pancytopenia; G40.89 Other seizures; F10.239 Alcohol dependence with withdrawal, unspecified; F10.229 Alcohol dependence with intoxication, unspecified; E87.6 Hypokalemia; I10 Essential (primary) hypertension; K80.20 Calculus of gallbladder without cholecystitis without obstruction; F41.9 Anxiety disorder, unspecified; E11.9 Type 2 diabetes mellitus without complications; N28.1 Cyst of kidney, acquired; M48.02 Spinal stenosis, cervical region; Z59.00 Homelessness unspecified; Z82.49 Family history of ischemic heart disease and other diseases of the circulatory system; Z85.028 Personal history of other malignant neoplasm of stomach
CPT/HCPCS: 49083; 70450; 71045; 72125; 74177; 76705; 76942; 80048; 80053; 80076; 80307; 81001; 82962; 83690; 83735; 84132; 84484; 85025; 85610; 85730; 93005; 97116; 97162; 97530; 99285; G0378; G0480; J0712; J1644; J1815; J2060; J2270; J3411; J3475; J3480; J3490; J7030; J7050; J7060; 36415-L1; 36415-TC

== ENCOUNTER 2025-04-23 18:21 | Emergency (ER) | payer OTHER ==
[~2025-04-23] VITALS: Ht 165.1 cm; Wt 72.7 kg
[~2025-04-23 18:21] MED LIST changes: -AMLO10TA55 PO; -CARV6.2534 PO
[2025-04-23 18:50] VITALS: TEMP 99.2
[2025-04-23] MEDS: ONDANSETRON HCL 4 MG/2 ML VIAL IM ONE (22:44)
[2025-04-23] MEDS: ACETAMINOPHEN 500 MG TABLET PO ONE (23:03)
[2025-04-24 00:50] VITALS: BP 142/77; PULSE 98; RESP 17; O2SAT 98
== END 2025-04-24 01:08 | disposition home or self-care (01) ==
LOC: EMS 18:22
DX: R51.9 Headache, unspecified (principal); R11.2 Nausea with vomiting, unspecified; F10.20 Alcohol dependence, uncomplicated; E11.9 Type 2 diabetes mellitus without complications; I10 Essential (primary) hypertension; F41.9 Anxiety disorder, unspecified; K74.60 Unspecified cirrhosis of liver; Z79.84 Long term (current) use of oral hypoglycemic drugs; Z85.028 Personal history of other malignant neoplasm of stomach; Z79.899 Other long term (current) drug therapy; Y90.9 Presence of alcohol in blood, level not specified
CPT/HCPCS: 99283; 96372; J2405